=== PATIENT | female | born 1960 | race Caucasian/White ===

== ENCOUNTER 2017-03-01 08:09 | Inpatient (IN) ==
--- NOTE | 2017-02-28 21:51 | Discharge Summary ---
<Leah Kelley - Last Filed: 03/02/17 12:40> Date of Encounter: 03/02/17 - Discharge Diagnosis (1) Arthritis of knee, left Priority: Primary Status: Chronic (2) Status post total knee replacement, left Priority: Primary Status: Acute (3) GERD (gastroesophageal reflux disease) Priority: Secondary Status: Acute Qualifiers: Esophagitis presence: without esophagitis Qualified Code(s): K21.9 - Gastro -esophageal reflux disease without esophagitis (4) Anticoagulated Priority: Secondary Status: Chronic Comments: Held Eliquis, resume after surgery - Discharge Medications Prescriptions: OxyCODONE/APAP 7.5/325 [Percocet 7.5/325 MG] 1 each PO Q6HR PRN #20 tablet PRN Reason: Pain Home Medications: OxyCODONE Immed Rel [Roxicodone 5 MG] 5 mg PO Q6HR PRN #28 tablet 02/28/17 [Rx] Apixaban [Eliquis] 5 mg PO BID 03/01/17 [History] BuPROPion XL (24 HR) [Wellbutrin Xl] 150 mg PO DAILY 03/01/17 [History] Omeprazole [PriLOSEC] 40 mg PO DAILY 03/01/17 [History] OxyCODONE/APAP 7.5/325 [Percocet 7.5/325 MG] 1 each PO Q6HR PRN #20 tablet 03/02 [Rx] Allergies/Adverse Reactions: 3 Allergy/AdvReac Type Severity Reaction Status Date / Time aspirin Allergy Vomiting Verified 03/01/17 08:49 morphine Allergy Headache Verified 03/01/17 08:49 tramadol [From Ultram] Allergy Vomiting Verified 03/01/17 08:49 Primary care physician: PCP NONE - Patient Status Disposition: Home, Self-Care Condition: Good - Discharge Instructions Follow Up With: NONE,PCP [Primary Care Provider] - - Hospital Course Hospital course: Ms. Carroll is a 56 year old female - Time Spent with Patient Total time spent providing and/or coordinating discharge services: <Garett Benton - Last Filed: 03/03/17 07:51> Date of Encounter: 03/03/17 Time of Encounter: 07:51 - Discharge Diagnosis (1) Morbid obesity with BMI of 40.0-44.9, adult Priority: Secondary Status: Chronic (2) Arthritis of knee, left Priority: Primary Status: Chronic (3) Status post total knee replacement, left Priority: Primary Status: Acute (4) GERD (gastroesophageal reflux disease) Priority: Secondary Status: Acute Qualifiers: Esophagitis presence: without esophagitis Qualified Code(s): K21.9 - Gastro -esophageal reflux disease without esophagitis (5) Anticoagulated Priority: Secondary Status: Chronic (6) Acute blood loss anemia Priority: Primary Status: Acute Primary care physician: PCP NONE - Patient Status Functional capacity at discharge: uses cane/walker Overall status at discharge: patient is progressing back to baseline - Hospital Course Hospital course: Ms. Carroll is a 56 year old female Status post left total knee replacement. Hemoglobin down to 7.5 transfused 2 units before discharge The patient had an uneventful postoperative course. They received antibiotics and physical therapy and were discharged in stable condition. There will follow -up in the office in 2 weeks. - Time Spent with Patient Total time spent providing and/or coordinating discharge services:
[2017-03-01] MEDS ORDERED: Lidocaine -MPF 1% 2 ML VIAL ID ONE (08:25)
[2017-03-01] MEDS ORDERED: CeFAZolin Pre 3,000 MG/100 ML 3,000 MG/100 ML BAG IVPB ONE (08:25)
[2017-03-01] MEDS ORDERED: Ringers Solution, Lactated 1,000 ML IVC SCH (08:30)
[2017-03-01] MEDS ORDERED: Vancomycin 1,750 MG in D5% in Water 500 ML IVPB ONE (08:43)
[2017-03-01] MEDS ORDERED: Scopolamine Patch 1.5 MG PATCH.TD72 TD ONE (08:55)
--- NOTE | 2017-03-01 08:59 | Anesthesia Evaluation PreOp ---
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: Other (anxiety/depression) Other Medical History: Other (BMI 42) Anesthesia History: No Prior Anesthetic Complications Alcohol Use: none Drug use: none Medications and Allergies OxyCODONE Immed Rel [Roxicodone 5 MG] 5 mg PO Q6HR PRN #28 tablet 02/28/17 [Rx] Apixaban [Eliquis] 5 mg PO BID 03/01/17 [History] BuPROPion XL (24 HR) [Wellbutrin XL] 150 mg PO DAILY 03/01/17 [History] Omeprazole [PriLOSEC] 40 mg PO DAILY 03/01/17 [History] Oxycodone HCl/Acetaminophen [Percocet 7.5-325 mg Tablet] 1 tab PO Q6H PRN [History] 3 Allergy/AdvReac Type Severity Reaction Status Date / Time aspirin Allergy Vomiting Verified 03/01/17 08:49 morphine Allergy Headache Verified 03/01/17 08:49 tramadol [From Ultram] Allergy Vomiting Verified 03/01/17 08:49 - Meds/Allergy Pre-op Review Medications Reviewed: Yes Allergies Reviewed: Yes Beta Blockers on Current Med List: No Anesthesia Results - Labs Laboratory Tests 02/26/17 02/26/17 02/26/17 10:10 10:10 10:10 WBC 5.1 Hgb 12.5 Hct 40.4 Plt Count 200 PT 13.2 H INR 1.2 APTT 31.9 Sodium 140 Potassium 4.0 Chloride 108 Carbon Dioxide 24 BUN 10 Creatinine 0.78 Est GFR ( Amer) > 60 Est GFR (Non-Af Amer) > 60 BUN/Creatinine Ratio 13 Anesthesia Exam Last Vital Signs Temp 97.8 F 03/01/17 08:37 Pulse 77 03/01/17 08:37 Resp 18 03/01/17 08:37 BP 147/83 03/01/17 08:37 Pulse Ox 97 03/01/17 08:37 Weight: 124 kg NPO (# of Hours): > 8 hrs - HEENT Pupil (Motor): Pupils equal, EOMI Mallampati: III Teeth: Edentulous Oral Opening: Greater than 3 - JEWELRY ENAMELER LOC: Oriented JEWELRY ENAMELER Motor: Normal RUE, Normal LUE, Normal RLE, Normal LLE, Normal Face - Cardiac Rhythm: Regular Murmur: None - Pulmonary Breath Sounds: bilateral Clear Respiratory Effort: Symmetrical Anesthesia Assess/Plan ASA Score: 3 Modified Ella Scale for Level of Consciousness: Cooperative, oriented, and tranquil Anesthetic Plan: General, Regional Monitoring Plan: Standard Monitors Recovery Plan: PACU
--- NOTE | 2017-03-01 10:45 | History & Physical Report ---
Date of Encounter: 03/01/17 Time of Encounter: 10:44 24 Hour HP Update - Instructions Instructions: If the History and Physical is less than 30 days old and was completed prior to A.M. admission and or procedure and has NOT been updated on calendar day of procedure please complete this update prior to performing procedure. - Update Patient reports changes in Medical Condition: No Changes in examination, assessment, or condition: No Changes in Medication: No Preop tests/diagnostics Reviewed: Yes Surgery Remains Indicated: Yes Consent for Planned Operative Procedure(s) Verified: Yes - Pre-Operative Checklist Preoperative Checklist Indicated: No Prophylactic Antibiotic Ordered: Yes Is VTE Prophylaxis Indicated?: Yes
--- NOTE | 2017-03-01 13:51 | Electrocardiograph Report ---
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
--- NOTE | 2017-03-01 15:47 | Physician Discharge Referral ---
Home Health/Hosp Referral Info Transfer to: Home Health Attending Provider: Provider in Charge Post Discharge: PCP - Diagnosis (1) Arthritis of knee, left Priority: Primary Status: Chronic (2) Status post total knee replacement, left Priority: Primary Status: Acute (3) GERD (gastroesophageal reflux disease) Priority: Secondary Status: Acute (4) Anticoagulated Priority: Secondary Status: Chronic - Respiratory Orders None Smoking Cessation: Smoking cessation has been advised. For more information, call the [place] Tobacco Quit Line at 7-928-QOST-NOW. - Diet/Nutrition Diet/Nutrition Orders: Regular - Activity Activity Orders: Up ad luis angel, Ambulate, Chair, Walker - Services Needed Following services are medically necessary services: Nursing, Home Health Aide, Physical Therapy, Occupational Therapy Home Care Orders: Left Knee: Opsite dressing, leave intact until first post-operative visit. If dressing becomes >50% saturated, contact office, remove dressing and place appropriate dressing in its place. Do not allow for dressing to get wet. Zipline dressing in place. PT: Precautions x 6 weeks Apply cold therapy wrap 3-6x/day for 20 minutes at a time. Encourage ambulation throughout the day and incentive spirometer 10x/hour. Elevate affected extremity above heart as tolerated. Brace: Knee immobilizer at night until first post-op - Transfer Medications Prescriptions: OxyCODONE Immed Rel [Roxicodone 5 MG] 5 mg PO Q6HR PRN #28 tablet PRN Reason: Pain Home Medications: OxyCODONE Immed Rel [Roxicodone 5 MG] 5 mg PO Q6HR PRN #28 tablet 02/28/17 [Rx] Apixaban [Eliquis] 5 mg PO BID 03/01/17 [History] BuPROPion XL (24 HR) [Wellbutrin Xl] 150 mg PO DAILY 03/01/17 [History] Omeprazole [PriLOSEC] 40 mg PO DAILY 03/01/17 [History] Allergies/Adverse Reactions: 3 Allergy/AdvReac Type Severity Reaction Status Date / Time aspirin Allergy Vomiting Verified 03/01/17 08:49 morphine Allergy Headache Verified 03/01/17 08:49 tramadol [From Ultram] Allergy Vomiting Verified 03/01/17 08:49 Certification: Further, I certify that my clinical findings support that this patient is homebound (i.e. absences from home require considerable and taxing effort and are for medical reasons or denominational services or infrequently or short duration when for other reasons) because: Homebound Reason: Post-surgery restriction and or conditions limit ability to leave home Attestation: My signature below is to certify that this patient is under my care and that I, or nurse practitioner, or a physician's optometrist assistant working with me, has a face-to -face encounter with this patient.
[2017-03-01] MEDS ORDERED: *HR* Propofol 200 MG/20 ML VIAL IVP ONE (16:32)
[2017-03-01] MEDS ORDERED: *HR* FentaNYL (PF) 100 MCG/2 ML VIAL ONE (16:32)
[2017-03-01] MEDS ORDERED: *HR* Midazolam HCl 2 MG/2 ML VIAL ONE (16:32)
[2017-03-01] MEDS ORDERED: Lidocaine -MPF 2% 2 ML VIAL ONE ×2 (16:33)
[2017-03-01] MEDS ORDERED: Bupivacaine-MPF 0.25% 10 ML VIAL ONE (16:34)
[2017-03-01] MEDS ORDERED: ROPIVACAINE HCL/PF 0.5% 30 ML VIAL ONE (16:34)
[2017-03-01] MEDS ORDERED: Ethanol\\Acetic Acid\\Na Ace\\Ben 1,000 ML IRRIG.SOLN IR ONE (16:53)
--- NOTE | 2017-03-01 17:04 | Anesthesia Procedures ---
Date of Encounter: 03/01/17 Time of Encounter: 17:02 Procedures: Anesthesia - Nerve Block Procedure Date: 03/01/17 Time: 17:02 Allergies/Adv Reactions: 3 Allergy/AdvReac Type Severity Reaction Status Date / Time aspirin Allergy Vomiting Verified 03/01/17 08:49 morphine Allergy Headache Verified 03/01/17 08:49 tramadol [From Ultram] Allergy Vomiting Verified 03/01/17 08:49 Pre-op Diagnosis: oa left knee Surgical Procedure: left total knee Checklist: Correct Patient Identifier, Correct procedure, History checked Correct side: Left Blood Thinner: No Monitor Applied: EKG, BP, Pulse Oximetry Supplemental Oxygen via Nasal Cannula (L/min): 2 Sedation: Versed (mg): 2 Sedation: Fentanyl (mcg): 100 Indication: Post Op Analgesia Block Type: Femoral (30cc 0.5% ropivicaine), Other (ipack 20cc 0.25% bupivicaine ) Catheter placed: No Sterile Technique: Yes Ultrasound used: Yes Anatomy identified: Yes Visual spread of Local: Yes Neuro Stimulation: No Blood on Needle Aspiration: No Smooth Injection of Local: Yes Pain with Injection of Local: No Prep: Chlorhexadine Needle: 22 x 50 mm Stimuplex (femoral), 21 x 100 mm Stimuplex (sciatic) Volume (cc): 50cc Number of Attempts: 1 Complications: None/effective block
[2017-03-01] MEDS ORDERED: Acetaminophen IV 1,000 MG/100 ML INFUS..BTL ONE (17:25)
[2017-03-01] MEDS ORDERED: *HR* Magnesium Sulfate 1 GM/2 ML VIAL ONE (17:26)
[2017-03-01] MEDS ORDERED: *HR* HYDROmorphone 2 MG/ML SYRINGE ONE (17:41)
[2017-03-01] MEDS ORDERED: *HR* Promethazine 25 MG/ML VIAL IVP PRN (17:52)
[2017-03-01] MEDS ORDERED: *HR* Labetalol 20 MG/4 ML SYRINGE IVP PRN (17:52)
[2017-03-01] MEDS ORDERED: Dexamethasone 4 MG/ML VIAL ONE (18:46)
[2017-03-01] MEDS ORDERED: Ketorolac 30 MG/ML VIAL ONE (18:46)
[2017-03-01] MEDS ORDERED: Ondansetron 4 MG/2 ML VIAL ONE (18:46)
[2017-03-01] MEDS ORDERED: *HR* Succinylcholine 200 MG/10 ML VIAL IVP ONE (18:46)
--- NOTE | 2017-03-01 18:47 | Orthopedic Operative Note ---
Date of procedure: 03/01/17 Pre-op diagnosis: Left knee arthritis Post-op diagnosis: same Procedure: Procedure: Left robotic-assisted Total knee replacement Estimated blood loss: 400 cc Hardware: Metal and polyethylene replacement. [place] Femur: 4 Tibia:4 PS insert: 13 TS Patella: 35 Exam Under anesthesia: Flexion contracture of 20 degrees as calculated by the robot full flexion and no instability Procedural Notes: Grade 4 arthritic changes all 3 compartments. Operative procedure: The patient was brought to the operating room and placed on the operating room table. After general anesthesia was administered the operative knee was examined. Findings were noted in the exam under anesthesia. The operative extremity was prepped and draped in sterile surgical fashion. The patient received IV antibiotics prior to skin incision. A standard midline incision was made centered over the patella. The incision was made through the skin and subcutaneous tissue. A medial parapatellar tendon approach was performed. Care was taken to preserve tissue along the medial aspect of the patella. And to protect the patella tendon. The deep MCL was released off the medial tibia. The infra patella fat pad was excised. The patella was everted and cut was made at the level of the insertion of the quadriceps and patella tendon. The patella was sized the guide was seated and the lug holes are drilled. Knee was brought into flexion. Patient noted to have a 4 arthritic changes all 3 compartments. Steinmann pins were placed in the tibia and the femur for the tibial and femoral arrays respectively. Checkpoints were also placed in the tibia and the femur for calculation purposes. The knee including the femur and the tibial were registered. Osteophytes, ACL and PCL were excised at this point. Extension was to 20 degrees and varus and valgus stresses were assessed , 90 degrees of flexion varus and valgus stresses were assessed and components were adjusted on the computer for the robotic cut positions. Femoral cuts were made first with robotic assistance, these included the anterior cut posterior cuts chamfer cuts. Tibial cut was then performed with robotic assistance as well. Bone fragments were removed, as well as the medial and lateral meniscus. The size 4 femoral guide was seated box cut was made lug holes are drilled. The size 4 tibial tray was seated and prepared with the fin cutter. Trial reduction with the 13 TS Aleshia revealed extension of 0 degree and full flexion. No varus valgus instability. Trial reduction revealed excellent patella tracking. All trial components were removed all bony surfaces were irrigated. Tibias was cemented followed by the femur the 13 TS Aleshia was seated and secured patella. Patient had similar findings for motion and stability. The knee was closed by the PA. The knee was then irrigated out with 2 L of pulse irrigation. The PA closed the knee. The extensor mechanism was closed with #2 FiberWire suture and #2 PDS suture. The subcutaneous tissue was then irrigated and closed deep with #1 PDS suture superficially with 0 PDS suture and skin was closed with zip tie The patient was then placed in a sterile dressing and a postoperative brace extubated and transferred to recovery room in stable condition. Anesthesia: THOMAS Surgeon: Garett Benton Forestry Extension Specialist: Leah Kelley Condition: stable Disposition: PACU
[2017-03-01] MEDS: *HR* HYDROmorphone (PF) 1 MG/ML SYRINGE IVP PRN ×3 (19:27→22:08)
[2017-03-01] MEDS ORDERED: *HR* HYDROmorphone (PF) 1 MG/ML SYRINGE IVP PRN (19:47)
[2017-03-01 20:09] LABS: Hematocrit 34.3 % (35.3-44.9)
[2017-03-01 20:12] LABS: Hemoglobin 10.8 g/dL (11.5-15.4)
--- NOTE | 2017-03-01 20:46 | Anesthesia Evaluation Post Op ---
Date of Encounter: 03/01/17 Time of Encounter: 20:45 - Vital Signs Vital Signs: Vital Signs/O2 Sat, Most Current Temp Pulse Resp BP Pulse Ox 97.6 F 79 16 92/70 99 03/01/17 20:08 03/01/17 20:18 03/01/17 20:18 03/01/17 20:18 03/01/17 20:18 - Lungs Lungs: Clear Ascult./Percussion - Airway Airway: Non-obstructed - Cardiovascular Regular Rate - Mental Status Mental Status: Alert & Oriented, Answers Appropriately - Pain Pain Scale: 0 Pain Scale used: Numeric (1 - 10) - Nausea Vomiting Nausea Vomiting: Not Present - Hydration Hydration: Tolerates oral liquids, Has not voided - Discharge PostOp Status: Transfer Patient to floor
[2017-03-01] MEDS ORDERED: *HR* OxyCODONE Immed Rel 5 MG TABLET PO PRN (21:13)
[2017-03-01] MEDS ORDERED: Temazepam 15 MG CAPSULE PO PRN (21:15)
[2017-03-01] MEDS ORDERED: Naloxone 0.4 MG/ML INJ IVP PRN (21:16)
[2017-03-01] MEDS ORDERED: MOM Conc 10 ML UD.LIQ PO PRN (21:48)
[2017-03-01] MEDS ORDERED: Sennosides 8.6 MG TABLET PO PRN (21:48)
[2017-03-01] MEDS: Ondansetron 4 MG/2 ML VIAL IVP PRN (22:08)
[2017-03-01] MEDS: Ringers Solution, Lactated 1,000 ML IVC SCH (22:35)
[2017-03-01] MEDS: ceFAZolin 2,000 MG in D5% in Water 100 ML IVPB SCH (22:36)
[2017-03-02] MEDS: *HR* OxyCODONE Immed Rel 5 MG TABLET PO PRN ×3 (01:03→15:33)
[2017-03-02] MEDS: *HR* HYDROmorphone (PF) 1 MG/ML SYRINGE IVP PRN ×3 (05:45→23:40)
[2017-03-02] MEDS: Ondansetron 4 MG/2 ML VIAL IVP PRN ×3 (05:45→19:54)
[2017-03-02 05:48] LABS: Hematocrit 30.4 % (35.3-44.9); Hemoglobin 9.6 g/dL (11.5-15.4)
[2017-03-02 06:10] LABS: BUN/Creatinine Ratio 16 (6-26); Blood Urea Nitrogen 13 mg/dL (7-20); Calcium 8.4 mg/dL (8.6-10.8); Carbon Dioxide 24 mEq/L (19-29); Chloride 105 mEq/L (98-109); Glucose 131 mg/dL (70-99); Osmolality,Calculated 286 (280-300); Potassium 4.7 mEq/L (3.5-4.5); Sodium 137 mEq/L (136-145); eGFR For African Americans > 60 (> 60); eGFR For Non-African Americans > 60 (> 60)
--- NOTE | 2017-03-02 06:34 | Orthopedics Progress Note ---
Date of Encounter: 03/02/17 Time of Encounter: 06:33 - Assessment and Plan (1) Morbid obesity with BMI of 40.0-44.9, adult Current Visit: Yes Status: Chronic (2) Arthritis of knee, left Current Visit: No Status: Chronic (3) Status post total knee replacement, left Current Visit: No Status: Acute (4) GERD (gastroesophageal reflux disease) Current Visit: No Status: Acute Qualifiers: Esophagitis presence: without esophagitis Qualified Code(s): K21.9 - Gastro -esophageal reflux disease without esophagitis (5) Anticoagulated Current Visit: No Status: Chronic (6) Acute blood loss anemia Current Visit: Yes Status: Acute Subjective Interval history: Patient was seen this morning doing well without complaints. Afebrile vital signs stable. Operative extremity: Neurovascularly intact Dressing clean dry and intact Calves nontender Assessment and plan: Continue with postoperative care Hematocrit 30 Objective Vital signs: Vital Signs Temp Pulse Resp BP Pulse Ox 03/02/17 04:54 98.0 F 64 16 101/68 94 03/01/17 23:07 97.5 F L 95 16 99/70 97 03/01/17 22:00 97.8 F 79 14 104/72 97 03/01/17 21:00 97.8 F 82 16 97/65 99 03/01/17 20:30 97.6 F 81 12 101/72 100 03/01/17 20:18 79 16 92/70 99 03/01/17 20:08 97.6 F 79 16 101/62 99 03/01/17 19:58 77 16 99/55 98 03/01/17 19:48 98.4 F 80 16 99/66 99 03/01/17 19:38 83 16 103/77 96 03/01/17 19:28 88 16 116/77 95 03/01/17 19:18 98.3 F 70 16 122/76 95 03/01/17 16:35 66 18 132/77 97 03/01/17 08:37 97.8 F 77 18 147/83 97 03/01/17 08:24 97.8 F 77 18 147/83 97 Intake and Output 03/01/17 03/01/17 03/02/17 15:59 23:59 07:59 Output Total 400 / 400 250 / 250 Balance -400 / -400 -250 / -250 Output: Urine 250 / 250 Estimated Blood Loss 400 / 400 Other: Weight 123.831 kg 124.6 kg Patient Weight 03/02/17 23:59 Weight 124.6 kg - Labs CBC & BMP: 03/02/17 04:44 03/02/17 04:44 Labs: Abnormal lab results Hgb 9.6 g/dL (11.5-15.4) L 03/02/17 04:44 Hct 30.4 % (35.3-44.9) L 03/02/17 04:44 Potassium 4.7 mEq/L (3.5-4.5) H 03/02/17 04:44 Glucose 131 mg/dL (70-99) H 03/02/17 04:44 Calcium 8.4 mg/dL (8.6-10.8) L 03/02/17 04:44 - VTE Documentation of Mechanical Device: Venous foot pump, device Consult Discharge Plan - Plan Referrals: NONE,PCP [Primary Care Provider] - Prescriptions: OxyCODONE Immed Rel [Roxicodone 5 MG] 5 mg PO Q6HR PRN #28 tablet PRN Reason: Pain
[2017-03-02] MEDS: APIXABAN 5 MG TABLET PO SCH ×2 (07:32→19:54)
[2017-03-02] MEDS: BuPROPion XL (24 HR) 150 MG TABLET PO SCH (07:32)
[2017-03-02] MEDS: ceFAZolin 2,000 MG in D5% in Water 100 ML IVPB SCH (07:33)
[2017-03-02] MEDS ORDERED: Acetaminophen IV 1,000 MG/100 ML INFUS..BTL IVPB PRN (11:37)
--- NOTE | 2017-03-02 12:24 | Event Note ---
Date of Encounter: 03/02/17 Time of Encounter: 12:21 PCR - Left TKR -robotic POD#.1 Comorbidities:GERD, Bypass history, On Eliquis - to be continued. Chronic pain - Labs: Stable, monitoring H/H Patient seen at bedside. Pain control: Adequate, hypotensive - Added Toradol and Ofirmev *Chronic pain - Percocet 7.5/325 #84 TID Will resume this* Participating in PT. All questions and concerns addressed. Educated on use of incentive spirometer, ambulation, and hydration. Patient educated on post-operative restrictions and care. Addressed: See above Chronic pain, Percocet 7.5/325mg TID. D/C plan: Home Health - established, continuity completed Now wanting ECF. Continuity placed.
[2017-03-02] MEDS: Ketorolac 15 MG/ML VIAL IVP PRN ×2 (12:34→23:40)
--- NOTE | 2017-03-02 12:45 | Physician Discharge Referral ---
ExtendedCare Referral Info Transfer To: [facility] Provider in Charge: Provider in Charge after Transfer: PCP Institutional Level of Care: Skilled - Diagnosis (1) Arthritis of knee, left Priority: Primary Status: Chronic (2) Status post total knee replacement, left Priority: Primary Status: Acute (3) GERD (gastroesophageal reflux disease) Priority: Secondary Status: Acute (4) Anticoagulated Priority: Secondary Status: Chronic (5) Acute blood loss anemia Priority: Secondary Status: Acute (6) Morbid obesity with BMI of 40.0-44.9, adult Priority: Secondary Status: Chronic (7) Chronic pain Priority: Secondary Status: Chronic Expected Duration of Placement: < 30 days Prognosis: Good Aware of Diagnosis: Patient Aware of Prognosis: Patient - Transfer Medications Prescriptions: OxyCODONE/APAP 7.5/325 [Percocet 7.5/325 MG] 1 each PO Q6HR PRN #20 tablet PRN Reason: Pain Home Medications: OxyCODONE Immed Rel [Roxicodone 5 MG] 5 mg PO Q6HR PRN #28 tablet 02/28/17 [Rx] Apixaban [Eliquis] 5 mg PO BID 03/01/17 [History] BuPROPion XL (24 HR) [Wellbutrin Xl] 150 mg PO DAILY 03/01/17 [History] Omeprazole [PriLOSEC] 40 mg PO DAILY 03/01/17 [History] OxyCODONE/APAP 7.5/325 [Percocet 7.5/325 MG] 1 each PO Q6HR PRN #20 tablet 03/02 [Rx] Allergies/Adverse Reactions: 3 Allergy/AdvReac Type Severity Reaction Status Date / Time aspirin Allergy Vomiting Verified 03/01/17 08:49 morphine Allergy Headache Verified 03/01/17 08:49 tramadol [From Ultram] Allergy Vomiting Verified 03/01/17 08:49 - Respiratory Orders None Smoking Cessation: Smoking cessation has been advised. For more information, call the [place] Tobacco Quit Line at 2-573-RGBI-NOW. - Ancillary Orders May use pressure relief devices daily prn, May go on AARON w/family/respon alliance party w /meds at nurse discretion PRN, May consult with Dentist, Automobile Bumper Straightener, Parachute Manufacturing Supervisor PRN - Mobility Orders Chair, Ambulate, Bedrest - Rehabiliation Orders Rehab Potential: Good Rehab Orders: ROM Exercises, Evaluation for Physical Therapy, Evaluation for Occupational Therapy - Treatments List/Other: Opsite dressing, leave intact until first post-operative visit. If dressing becomes >50% saturated, contact office, remove dressing and place appropriate dressing in its place. Do not allow for dressing to get wet. Zipline dressing in place, plan to remove at post-operative day #14-16. Total Joint Precautions x 6 weeks Apply cold therapy wrap 3-6x/day for 20 minutes at a time. Encourage ambulation throughout the day Use Incentive spirometer 10x/hour. Elevate affected extremity above heart as tolerated. Brace: Wear knee immobilizer at night x 2 weeks. - Diet Orders Regular CERTIFICATION: I certify that the transfer of the above named patient to an Extended Care Facility is necessary for the continuing treatment of the diagnosis listed. The above information is true and accurate reflection of patient's current condition. Confidential - Redisclosure prohibited without a patient's written consent.
[2017-03-02] MEDS: Ringers Solution, Lactated 1,000 ML IVC SCH (13:39)
[2017-03-02] MEDS ORDERED: 0.9 % Sodium Chloride 500 ML IVC ONE (17:59)
[2017-03-02] MEDS: *HR* OxyCODONE/APAP 7.5/325 TABLET PO PRN (19:54)
[2017-03-03 03:35] LABS: Hemoglobin 7.5 g/dL (11.5-15.4)
[2017-03-03 03:43] LABS: BUN/Creatinine Ratio 20 (6-26); Blood Urea Nitrogen 21 mg/dL (7-20); Calcium 7.9 mg/dL (8.6-10.8); Carbon Dioxide 25 mEq/L (19-29); Chloride 106 mEq/L (98-109); Glucose 101 mg/dL (70-99); Osmolality,Calculated 287 (280-300); Potassium 4.5 mEq/L (3.5-4.5); Sodium 137 mEq/L (136-145); eGFR For African Americans > 60 (> 60); eGFR For Non-African Americans 53 (> 60)
[2017-03-03] MEDS: Ondansetron 4 MG/2 ML VIAL IVP PRN (04:59)
[2017-03-03] MEDS: *HR* OxyCODONE/APAP 7.5/325 TABLET PO PRN ×3 (04:59→19:17)
[2017-03-03] MEDS: Ringers Solution, Lactated 1,000 ML IVC SCH (04:59)
[2017-03-03] MEDS: *HR* HYDROmorphone (PF) 1 MG/ML SYRINGE IVP PRN ×3 (06:26→16:44)
[2017-03-03] MEDS ORDERED: Furosemide 20 MG/2 ML VIAL IVP PRN (07:52)
--- NOTE | 2017-03-03 07:52 | Orthopedics Progress Note ---
Date of Encounter: 03/03/17 Time of Encounter: 07:52 - Assessment and Plan (1) Morbid obesity with BMI of 40.0-44.9, adult Current Visit: Yes Status: Chronic (2) Arthritis of knee, left Current Visit: No Status: Chronic (3) Status post total knee replacement, left Current Visit: No Status: Acute (4) GERD (gastroesophageal reflux disease) Current Visit: No Status: Acute Qualifiers: Esophagitis presence: without esophagitis Qualified Code(s): K21.9 - Gastro -esophageal reflux disease without esophagitis (5) Anticoagulated Current Visit: No Status: Chronic (6) Acute blood loss anemia Current Visit: Yes Status: Acute Subjective Interval history: Patient was seen this morning doing well without complaints. Afebrile vital signs stable. Operative extremity: Neurovascularly intact Dressing clean dry and intact Calves nontender Assessment and plan: Continue with postoperative care Hemoglobin 7.5 transfused 2 units discharged today Objective Vital signs: Vital Signs Temp Pulse Resp BP Pulse Ox 03/03/17 06:48 98.3 F 92 18 93/55 93 03/03/17 05:09 98.8 F 92 18 101/69 96 03/02/17 23:38 98.5 F 90 18 108/68 95 03/02/17 21:18 91 106/68 03/02/17 19:51 98.8 F 85 16 101/67 98 03/02/17 15:28 98.2 F 69 18 99/65 94 03/02/17 11:10 98.4 F 80 18 88/59 98 Intake and Output 03/02/17 03/02/17 03/03/17 15:59 23:59 07:59 Intake Total 1220 / 1220 100 / 100 1000 / 1000 Output Total 50 / 50 200 / 200 400 / 400 Balance 1170 / 1170 -100 / -100 600 / 600 Intake: IV Fluids 1100 / 1100 1000 / 1000 Lactated Ringers 1,000 ML @ 75 1000 / 1000 1000 / 1000 mls/hr IVC .[id number] Rx#: [id number] Ofirmev 1,000 mg/100 ml 1,000 100 / 100 mg In 100 ml @ 400 mls/hr IVPB Q6HR PRN Rx#:[id number] Oral 120 / 120 100 / 100 Output: Urine 50 / 50 200 / 200 400 / 400 Other: Meal Breakfast Dinner Percent of Meal Consumed 10% 50% # Voids 1 - Labs CBC & BMP: 03/03/17 03:23 03/03/17 03:23 Labs: Abnormal lab results Hgb 7.5 g/dL (11.5-15.4) L D 03/03/17 03:23 Hct 24.0 % (35.3-44.9) L 03/03/17 03:23 BUN 21 mg/dL (7-20) H 03/03/17 03:23 Est GFR (Non-Af Amer) 53 (> 60) L 03/03/17 03:23 Glucose 101 mg/dL (70-99) H 03/03/17 03:23 Calcium 7.9 mg/dL (8.6-10.8) L 03/03/17 03:23 - VTE Documentation of Mechanical Device: Venous foot pump, device Consult Discharge Plan - Plan Referrals: NONE,PCP [Primary Care Provider] - Prescriptions: OxyCODONE/APAP 7.5/325 [Percocet 7.5/325 MG] 1 each PO Q6HR PRN #20 tablet PRN Reason: Pain
[2017-03-03] MEDS: APIXABAN 5 MG TABLET PO SCH ×2 (07:53→20:37)
[2017-03-03] MEDS: BuPROPion XL (24 HR) 150 MG TABLET PO SCH (07:53)
[2017-03-03] MEDS: Ketorolac 15 MG/ML VIAL IVP PRN ×2 (08:58→20:38)
[2017-03-03] MEDS: 0.9 % Sodium Chloride 250 ML IVC SCH (11:00)
--- NOTE | 2017-03-03 21:22 | Event Note ---
Date of Encounter: 03/03/17 Time of Encounter: 14:30 Attempted to do PCR with patient and discuss her post-operative course as well as discharge planning. Patient on phone and would not make eye contact or speak with this provider. Notified Dr. Benton, social work, and nurse navigator of this and no new information from patient.
[2017-03-04] MEDS: *HR* HYDROmorphone (PF) 1 MG/ML SYRINGE IVP PRN ×3 (01:48→14:24)
[2017-03-04] MEDS: Ondansetron 4 MG/2 ML VIAL IVP PRN ×3 (01:48→20:31)
[2017-03-04 05:05] LABS: Hematocrit 25.5 % (35.3-44.9)
[2017-03-04] MEDS: *HR* OxyCODONE/APAP 7.5/325 TABLET PO PRN ×4 (05:29→21:16)
[2017-03-04] MEDS: Ketorolac 15 MG/ML VIAL IVP PRN (07:49)
[2017-03-04] MEDS: BuPROPion XL (24 HR) 150 MG TABLET PO SCH (07:54)
[2017-03-04] MEDS: APIXABAN 5 MG TABLET PO SCH ×2 (07:54→20:32)
--- NOTE | 2017-03-04 08:22 | Orthopedics Progress Note ---
Date of Encounter: 03/04/17 Time of Encounter: 08:22 - Assessment and Plan (1) Morbid obesity with BMI of 40.0-44.9, adult Current Visit: Yes Status: Chronic (2) Arthritis of knee, left Current Visit: No Status: Chronic (3) Status post total knee replacement, left Current Visit: No Status: Acute (4) GERD (gastroesophageal reflux disease) Current Visit: No Status: Acute Qualifiers: Esophagitis presence: without esophagitis Qualified Code(s): K21.9 - Gastro -esophageal reflux disease without esophagitis (5) Anticoagulated Current Visit: No Status: Chronic (6) Acute blood loss anemia Current Visit: Yes Status: Acute Subjective Interval history: Patient was seen this morning doing well without complaints. Afebrile vital signs stable. Operative extremity: Neurovascularly intact Dressing clean dry and intact Calves nontender Assessment and plan: Continue with postoperative care Hematocrit 25, 1 unit discharged today Objective Vital signs: Vital Signs Temp Pulse Resp BP Pulse Ox 03/04/17 08:12 98.1 F 82 16 121/62 96 03/04/17 07:55 98.5 F 82 16 110/63 91 03/04/17 06:35 98.2 F 87 14 130/65 94 03/04/17 03:40 98.4 F 92 14 116/72 94 03/03/17 23:22 98.5 F 94 14 100/65 93 03/03/17 19:07 98.5 F 105 14 101/59 94 03/03/17 17:20 98.9 F 90 13 103/69 92 03/03/17 14:53 97.8 F 100 17 99/64 93 03/03/17 14:38 98.7 F 79 16 103/65 97 03/03/17 13:35 98.7 F 92 14 104/68 97 03/03/17 10:59 99.2 F 82 15 111/74 92 03/03/17 10:44 99.0 F 95 17 135/78 93 Intake and Output 03/03/17 03/04/17 03/04/17 23:59 07:59 15:59 Intake Total 970 / 970 Output Total 650 / 650 100 / 100 Balance 320 / 320 -100 / -100 Intake: Oral 620 / 620 Blood Product 350 / 350 Rbcs Leuko Poor As-1 Unit 350 / 350 [id number] Output: Urine 650 / 650 100 / 100 Other: Meal Dinner Percent of Meal Consumed 50% # Voids 1 - Labs CBC & BMP: 03/04/17 04:28 03/03/17 03:23 Labs: Abnormal lab results Hgb 8.0 g/dL (11.5-15.4) L 03/04/17 04:28 Hct 25.5 % (35.3-44.9) L 03/04/17 04:28 BUN 21 mg/dL (7-20) H 03/03/17 03:23 Est GFR (Non-Af Amer) 53 (> 60) L 03/03/17 03:23 Glucose 101 mg/dL (70-99) H 03/03/17 03:23 Calcium 7.9 mg/dL (8.6-10.8) L 03/03/17 03:23 - VTE Documentation of Mechanical Device: Venous foot pump, device Consult Discharge Plan - Plan Referrals: NONE,PCP [Primary Care Provider] - Prescriptions: OxyCODONE/APAP 7.5/325 [Percocet 7.5/325 MG] 1 each PO Q6HR PRN #20 tablet PRN Reason: Pain
[2017-03-04] MEDS: 0.9 % Sodium Chloride 250 ML IVC SCH ×2 (11:12→11:13)
--- NOTE | 2017-03-04 16:57 | Event Note ---
Date of Encounter: 03/04/17 Time of Encounter: 13:00 PCR - Left TKR -robotic POD#.3 - DOPPLER NEGATIVE Comorbidities:GERD, Bypass history, On Eliquis - to be continued. Chronic pain - Labs: Stable, monitoring H/H Patient seen at bedside. Pain control: Controlled - resumed chronic pain medications *Chronic pain - Percocet 7.5/325 #84 TID Participating in PT. All questions and concerns addressed. Educated on use of incentive spirometer, ambulation, and hydration. Patient educated on post-operative restrictions and care. Addressed: See above Chronic pain, Percocet 7.5/325mg TID. D/C plan: ECF- established, continuity completed . Continuity placed.
[2017-03-05] MEDS: *HR* OxyCODONE/APAP 7.5/325 TABLET PO PRN ×3 (01:19→09:22)
[2017-03-05 06:47] VITALS: BP 108/76
[2017-03-05 07:42] LABS: Hematocrit 27.7 % (35.3-44.9); Hemoglobin 8.6 g/dL (11.5-15.4)
--- NOTE | 2017-03-05 07:50 | Orthopedics Progress Note ---
Date of Encounter: 03/05/17 Time of Encounter: 07:49 - Assessment and Plan (1) Morbid obesity with BMI of 40.0-44.9, adult Current Visit: Yes Status: Chronic (2) Arthritis of knee, left Current Visit: No Status: Chronic (3) Status post total knee replacement, left Current Visit: No Status: Acute (4) GERD (gastroesophageal reflux disease) Current Visit: No Status: Acute Qualifiers: Esophagitis presence: without esophagitis Qualified Code(s): K21.9 - Gastro -esophageal reflux disease without esophagitis (5) Anticoagulated Current Visit: No Status: Chronic (6) Acute blood loss anemia Current Visit: Yes Status: Acute Subjective Interval history: Patient was seen this morning doing well without complaints. Afebrile vital signs stable. Operative extremity: Neurovascularly intact Dressing clean dry and intact Calves nontender Assessment and plan: Continue with postoperative care Hematocrit 27 discharged today Objective Vital signs: Vital Signs Temp Pulse Resp BP Pulse Ox 03/05/17 06:46 98.6 F 84 14 108/76 94 03/05/17 00:17 98.3 F 96 18 141/82 94 03/04/17 19:52 98.6 F 97 18 108/72 91 03/04/17 16:41 98.6 F 85 16 109/73 92 03/04/17 10:59 98.0 F 84 16 112/68 95 03/04/17 08:12 98.1 F 82 16 121/62 96 03/04/17 07:55 98.5 F 82 16 110/63 91 Intake and Output 03/04/17 03/04/17 03/05/17 15:59 23:59 07:59 Intake Total 529 / 529 845 / 845 450 / 450 Output Total 250 / 250 550 / 550 Balance 279 / 279 835 / 835 -100 / -100 Intake: IV Fluids 250 / 250 0.9 % Sodium Chloride 250 ML @ 250 / 250 25 mls/hr IVC .Q10H ANAMIKA Rx#: [id number] Oral 845 / 845 450 / 450 Blood Product 279 / 279 Rbcs Leuko Poor As-1 Unit 279 / 279 [id number] Output: Urine 250 / 250 550 / 550 Other: Meal Dinner Percent of Meal Consumed 70% # Voids 1 1 - Labs CBC & BMP: 03/05/17 06:34 03/03/17 03:23 Labs: Abnormal lab results Hgb 8.6 g/dL (11.5-15.4) L 03/05/17 06:34 Hct 27.7 % (35.3-44.9) L 03/05/17 06:34 BUN 21 mg/dL (7-20) H 03/03/17 03:23 Est GFR (Non-Af Amer) 53 (> 60) L 03/03/17 03:23 Glucose 101 mg/dL (70-99) H 03/03/17 03:23 Calcium 7.9 mg/dL (8.6-10.8) L 03/03/17 03:23 - VTE Documentation of Mechanical Device: Venous foot pump, device Consult Discharge Plan - Plan Referrals: Garett Benton MD [Partnered Physician] - 03/30/17 10:45 am Leah Kelley, PAC [Physician Hide Paster] - 03/11/17 2:15 pm (& also Wednesday , March 19, 2017 at 10:00 AM) NONE,PCP [Primary Care Provider] - Prescriptions: OxyCODONE/APAP 7.5/325 [Percocet 7.5/325 MG] 1 each PO Q6HR PRN #20 tablet PRN Reason: Pain
[2017-03-05] MEDS: Ondansetron 4 MG/2 ML VIAL IVP PRN (09:22)
[2017-03-05] MEDS: APIXABAN 5 MG TABLET PO SCH (09:23)
[2017-03-05] MEDS: BuPROPion XL (24 HR) 150 MG TABLET PO SCH (09:23)
== END 2017-03-05 13:27 | disposition home or self-care (01) | DRG 470 ==
LOC: SAMDAY 08:09 → 3NENU 11:38
PROVIDERS: ADMIT Orthopaedic Surgery; ATTEND Orthopaedic Surgery